=== PATIENT | female | born 1970 | race Asian ===

== ENCOUNTER 2017-09-09 05:52 | Day surgery (SDC) | payer BC ==
[2017-09-07 12:46] LABS: HEMATOCRIT 40.6 % (36.0-47.0); HEMOGLOBIN 13.2 g/dL (12.0-15.5); MEAN CORPUSCULAR HEMOGLOBIN 27.9 pg (27.0-33.4); MEAN CORPUSCULAR HGB CONC 32.4 g/dL (32.0-36.0); MEAN CORPUSCULAR VOLUME 86 fl (80-97); PLATELET COUNT 269 10^3/uL (150-450); RED BLOOD COUNT 4.72 10^6/uL (3.72-5.28); RED CELL DISTRIBUTION WIDTH 14.9 % (11.5-14.0); WHITE BLOOD COUNT 4.7 10^3/uL (4.0-10.5)
[2017-09-07 13:02] LABS: APPEARANCE,URINE CLEAR; BILIRUBIN,URINE NEGATIVE (NEGATIVE); COLOR,URINE YELLOW; GLUCOSE, URINE NEGATIVE (NEGATIVE); KETONES,URINE NEGATIVE (NEGATIVE); LEUKOCYTE ESTERASE,URINE NEGATIVE (NEGATIVE); NITRITE,URINE NEGATIVE (NEGATIVE); PROTEIN,URINE NEGATIVE (NEGATIVE); UROBILINOGEN,URINE NEGATIVE mg/dL (<2.0)
[2017-09-07 13:11] LABS: ANION GAP 12 (5-19); BLOOD UREA NITROGEN 13 mg/dL (7-20); CALCIUM 9.8 mg/dL (8.4-10.2); CARBON DIOXIDE 29 mmol/L (22-30); CHLORIDE 102 mmol/L (98-107); GLUCOSE 69 mg/dL (75-110); POTASSIUM 4.4 mmol/L (3.6-5.0); SODIUM 142.8 mmol/L (137-145)
[~2017-09-09 05:52] MED LIST: CEFAZOLIN 1 GM/D5W RTU 1 GM/50 ML RTUPB IV PRN; LACTATED RINGERS 1000 ML IV PRN; LIDOCAINE 0.5% INJ-PF (5 MG/ML) 50 ML SDV SUBCUT PRN
[2017-09-09] MEDS ORDERED: KETOROLAC TROMETHAMINE 60 MG/2 ML SDV ONE (06:44)
[2017-09-09] MEDS ORDERED: LIDOCAINE 2% INJ-PF (20 MG/ML) 10 ML AMPUL ONE (06:44)
[2017-09-09] MEDS ORDERED: FENTANYL CITRATE INJ/PF 100 MCG/2 ML AMPUL ONE (06:44)
[2017-09-09] MEDS ORDERED: MIDAZOLAM 2 MG/2 ML INJ ONE (06:44)
[2017-09-09] MEDS ORDERED: PROPOFOL INJ 200 MG/20 ML VIAL IV ONE (06:45)
[2017-09-09] MEDS ORDERED: ACETAMINOPHEN 100 ML IV ONE (06:45)
[2017-09-09] MEDS ORDERED: LIDOCAINE 1% INJ-PF (10 MG/ML) 30 ML SDV ONE (07:01)
[2017-09-09] MEDS ORDERED: MEPERIDINE HCL/PF INJ 25 MG/1 ML DISP.SYRIN IV PRN (07:19)
[2017-09-09] MEDS ORDERED: FENTANYL CITRATE INJ/PF 100 MCG/2 ML AMPUL IV PRN ×3 (07:19)
[2017-09-09] MEDS ORDERED: OXYCODONE-ACETAMINOPHEN 5-325 MG TABLET PO PRN ×3 (07:19→08:30)
[2017-09-09] MEDS ORDERED: MORPHINE SULFATE 10 MG/ML INJ IV PRN (07:19)
[2017-09-09] MEDS ORDERED: ONDANSETRON HCL INJ/PF 4 MG/2 ML SDV IV PRN (07:19)
[2017-09-09] MEDS ORDERED: PROMETHAZINE HCL INJ 25 MG/1 ML VIAL IV PRN ×2 (07:19)
[2017-09-09] MEDS ORDERED: DIPHENHYDRAMINE HCL 50 MG/ML VIAL IV PRN (07:19)
[2017-09-09] MEDS ORDERED: PROMETHAZINE HCL INJ 25 MG/1 ML VIAL IM PRN (08:30)
--- NOTE | 2017-09-09 08:59 | OPERATIVE REPORT E ---
Operative Report NAME: HESHAM PELAYO : 1970 AGE: 47Y DATE OF SURGERY: 09/09/2017 ROOM: PREOPERATIVE DIAGNOSIS: RETAINED IUD, BROKEN STRING, UNABLE TO REMOVE AN OUTPATIENT. POSTOPERATIVE DIAGNOSIS: RETAINED IUD, BROKEN STRING, UNABLE TO REMOVE AN OUTPATIENT. OPERATION: Hysteroscopic IUD retrieval and IUD insertion. SURGEON: GRANT VALLES M.D. COMPLICATIONS: None. ANESTHESIA: LMAC, paracervical block. FINDINGS: Old ParaGard with a broken string, approximately 4 mm from the knob of the IUD, well within the endocervical canal otherwise normal uterus. EUA demonstrated no adnexa masses. Bladder was left undrained. ESTIMATED BLOOD LOSS: 10 mL. INDICATION FOR PROCEDURE: Patient had an IUD that was unable to be retrieved with the usual outpatient management. I elected to proceed to an attempt under anesthesia with the hysteroscope. PROCEDURE: The patient was taken to the operating room and placed in the modified lithotomy position after adequate anesthesia was ascertained, prepped and draped in the usual manner for a hysterectomy. After a surgical timeout had been performed, the bladder was left undrained. The EUA performed. The cervix was infiltrated with 1% lidocaine without epinephrine approximately 5 mL. The uterus was dilated to admit an operative hysteroscope. The hysteroscope was inserted. The IUD was noted. It was retrieved uneventfully and survey of the uterus was performed without difficulty. A new IUD was placed after the uterus had been sounded to approximately 7 cm. A string was left long, approximately 1.5 cm from the cervix. Photographs were taken. DICTATING PHYSICIAN: GRANT VALLES M.D. [id number] PHY#: [id number] ID: [id number] JOB#: [id number] ACCT: [id number] cc:GRANT VALLES M.D. >
[2017-09-09 09:35] VITALS: BP 99/57
[2017-09-09] MEDS ORDERED: IBUPROFEN 800 MG TABLET PO SCH (14:00)
== END 2017-09-09 09:10 | disposition home or self-care (01) ==
LOC: OROUT 05:52
PROVIDERS: ATTEND Specialist
PROC: 0UH98HZ Insertion of Contraceptive Device into Uterus, Via Natural or Artificial Opening Endoscopic (ICD-10-PCS; 2017-09-09)
PROC: 0UPD8HZ Removal of Contraceptive Device from Uterus and Cervix, Via Natural or Artificial Opening Endoscopic (ICD-10-PCS; principal; 2017-09-09 07:15)
DX: T83.32XA Displacement of intrauterine contraceptive device, initial encounter (principal); Y83.8 Other surgical procedures as the cause of abnormal reaction of the patient, or of later complication, without mention of misadventure at the time of the procedure; Z30.433 Encounter for removal and reinsertion of intrauterine contraceptive device
CPT/HCPCS: 86900; 86901; 36415; 86850; 85027; 81025; 80048; 81001; 58579; 58300; J2250; J0690; J1885; J3010; J3490 ×2; J2704; J0131; 952